=== PATIENT | male | born 1985 | race Caucasian/White ===

== ENCOUNTER 2018-12-27 17:55 | Emergency (ER) | payer OTHER ==
[~2018-12-27] VITALS: Ht 175.3 cm; Wt 108.9 kg
[~2018-12-27 17:55] MED LIST: ACET325T9 PO
[2018-12-27 18:00] VITALS: BP 121/61
--- NOTE | 2018-12-27 18:00 | ED.ADGEN ---
Past History Past Medical History: No Pertinent History Past Surgical History: No Surgical History Alcohol Use: Occasionally Drug Use: None Adult General Chief Complaint Chief Complaint ".. I was helping my brother move.. and I rolled this ankle... about a hour ago... It still hurts to try and walk on it....." HPI HPI Patient is a 33 year old female who presents with above hx and complaints of Lt. ankle pain after inversion type injury. Laxity on anterior drawer. Distal neurovascular intact equal to right foot.. Rates pain as 8 out of 10. No other injuries reported. No upper leg tenderness. Negative foot squeeze. There is obvious edema left lateral malleolus. Patient immunosuppression. No travel or ill contacts. Patient normally healthy. Review of Systems Review of Systems Constitutional: Denies fever or chills [] Eyes: Denies change in visual acuity, redness, or eye pain [] HENT: Denies nasal congestion or sore throat [] Respiratory: Denies cough or shortness of breath [] Cardiovascular: No additional information not addressed in HPI [] GI: Denies abdominal pain, nausea, vomiting, bloody stools or diarrhea [] : Denies dysuria or hematuria [] Musculoskeletal: Complaints left ankle pain Integument: Denies rash or skin lesions [] Neurologic: Denies headache, focal weakness or sensory changes [] Endocrine: Denies polyuria or polydipsia [] All other systems were reviewed and found to be within normal limits, except as documented in this note. Family History Family History Noncontributory Current Medications Current Medications Current Medications Medications (Trade) Dose Ordered Sig/Benton Start Time Stop Time Status Last Admin Dose Admin Hydrocodone Bitartrate/ Ibuprofen (Vicoprofen 7.5-200) 2 tab 1X ONCE 12/27/18 18:30 12/27/18 18:33 DC 12/27/18 18:54 2 TAB Nursing for home meds Allergies Allergies Allergies Coded Allergies Type Severity Reaction Last Updated Verified No Known Drug Allergies 09/20/14 No Physical Exam Physical Exam Constitutional: in moderately acute distress, non-toxic appearance. [] HENT: Normocephalic, atraumatic, bilateral external ears normal, oropharynx moist, no oral exudates, nose normal. [] Eyes: PERRLA, EOMI, conjunctiva normal, no discharge. [] Neck: Normal range of motion, no tenderness, supple, no stridor. [] Cardiovascular:Heart rate regular rhythm, no murmur [] Lungs & Thorax: Bilateral breath sounds clear to auscultation [] Abdomen: Bowel sounds normal, soft, no tenderness, no masses, no pulsatile masses. [] Skin: Warm, dry, no erythema, no rash. [] Back: No tenderness, no CVA tenderness. [] Extremities: No tenderness, no cyanosis, no clubbing, ROM intact, no edema. [] Except findings in left ankle Neurologic: Alert and oriented X 3, normal motor function, normal sensory function, no focal deficits noted. [] Psychologic: Affect normal, judgement normal, mood normal. [] Current Patient Data Vital Signs Vital Signs Date Time Temp Pulse Resp B/P (MAP) Pulse Ox O2 Delivery O2 Flow Rate FiO2 12/27/18 18:00 98.1 90 16 97 Room Air 12/27/18 18:00 121/61 (81) EKG EKG [] Radiology/Procedures Radiology/Procedures I interpretation of x-ray shows[] edema and possible defect in distal fibular. Course & Med Decision Making Course & Med Decision Making Pertinent Labs and Imaging studies reviewed. (See chart for details). Ice, elevation, rest, splint, and take Tylenol and ibuprofen for pain. Follow- up primary care. Crutches. Distal neurovascular intact post application of splint [] Final Impression Final Impression 1. Left ankle sprain[] 2. Possible Fx. Fibular- ( Green stick) Dragon Disclaimer Dragon Disclaimer This electronic medical record was generated, in whole or in part, using a voice recognition dictation system. Dragon Disclaimer This chart was dictated in whole or in part using Voice Recognition software in a busy, high-work load, and often noisy Emergency Department environment. It may contain unintended and wholly unrecognized errors or omissions. Discharge Summary Visit Information Final Diagnosis Problems Medical Problems: (1) Ankle sprain Status: Acute (2) Closed fibular fracture Status: Acute Brief Hospital Course Allergies Allergies Coded Allergies Type Severity Reaction Last Updated Verified No Known Drug Allergies 09/20/14 No Vital Signs Vital Signs Date Time Temp Pulse Resp B/P (MAP) Pulse Ox O2 Delivery O2 Flow Rate FiO2 12/27/18 18:00 98.1 90 16 97 Room Air 12/27/18 18:00 121/61 (81) Brief Hospital Course Mr. Anderson is a 33 old male who presented with Lt ankle sprain- possible greenstick fx fibular distal. Discharge Information Condition at Discharge: Improved, Stable Disposition/Orders: D/C to Home Dischare Medications Current Medications Hydrocodone Bitartrate/ Ibuprofen (Vicoprofen 7.5-200) 2 tab 1X ONCE PO Last administered on 12/27/18at 18:54; Admin Dose 2 TAB; Start 12/27/18 at 18:30; Stop 12/27/18 at 18:33; Status DC Active Scripts Active Reported Tylenol (Acetaminophen) 325 Mg Tablet 1,300 Mg PO PAOLO PHELPS MD Dec 27, 2018 18:00
[2018-12-27] MEDS ORDERED: HYDROcodon/IBUPROFEN 7.5/200MG 1 TAB TABLET PO ONE (18:30)
--- NOTE | 2018-12-28 07:46 | RAD ---
Indication:Twisting injury, left ankle pain and swelling. TECHNIQUE: 3 views of the left ankle COMPARISON:None FINDINGS/ impression: No acute fracture or dislocation. Mild soft tissue swelling seen overlying lateral malleolus. Ankle mortise is intact. Electronically signed by: Fei Duke DO (12/28/2018 7:42 AM) [facility]
== END 2018-12-27 19:00 | disposition home or self-care (01) ==
LOC: ER 17:55
DX: S82.832A Other fracture of upper and lower end of left fibula, initial encounter for closed fracture (principal); S93.402A Sprain of unspecified ligament of left ankle, initial encounter; X50.9XXA Other and unspecified overexertion or strenuous movements or postures, initial encounter; Y93.89 Activity, other specified; Y92.89 Other specified places as the place of occurrence of the external cause; Y99.8 Other external cause status
CPT/HCPCS: 29515; 73610; 99283

== ENCOUNTER 2019-10-23 16:09 | Inpatient (IN) | payer OTHER ==
[~2019-10-23] VITALS: Ht 175.3 cm; Wt 107.0 kg
[2019-10-23] MEDS ORDERED: PROCHLORPERAZINE 10 MG/2 ML VIAL. IV ONE (16:30)
[2019-10-23] MEDS ORDERED: diphenhydrAMINE 50 MG/ML VIAL IVP ONE (16:30)
--- NOTE | 2019-10-23 16:44 | RAD ---
EXAM: Head CT without contrast. HISTORY: Severe headache. TECHNIQUE: Computed tomographic images of the head were obtained without contrast. *One or more of the following individualized dose reduction techniques were utilized for this examination: 1. Automated exposure control. 2. Adjustment of the mA and/or kV according to patient size. 3. Use of iterative reconstruction technique. COMPARISON: None. FINDINGS: There is no acute or subacute extra-axial or intraparenchymal hemorrhage. There is no mass effect or midline shift. There is no hydrocephalus. The malhotra-white matter differentiation pattern is intact. There is left ethmoid, maxillary and frontal sinus mucosal thickening. The mastoid air cells are clear. No suspicious calvarial lesion is seen. IMPRESSION: No acute intracranial findings. Electronically signed by: Rupa Tyler MD (10/23/2019 4:41 PM) [facility]
--- NOTE | 2019-10-23 16:47 | PHYS DOC ---
Past History Past Medical History: No Pertinent History (BRYAN LAGUERRE MD) Past Surgical History: Other Additional Past Surgical Histo: knee surgery (BRYAN LAGUERRE MD) Alcohol Use: Occasionally Drug Use: None (BRYAN LAGUERRE MD) Adult General Chief Complaint Chief Complaint: HEADACHE HPI HPI Patient is a 34 yo male was presented with chief complaint of headache. He's had 3 severe headaches over the last 4 days each of the last 2 nights she had a headache that lasted about an hour or 2 hours it was severe he took Tylenol and over time the headache went away today at 3 PM he had the most severe headache that started suddenly while he was waiting in line for his daughters peanut picker at school. Patient denies a previous history of headaches he denies any tobacco alcohol or drugs he denies medical history does not take any daily medications denies any allergies to medications the pain is in the left frontal area radiates diffusely associated with nausea and photophobia everything seems to make the pain worse. He says it feels like a squeezing. Of note he has had recent sinus pressure and sinus drainage multiple people have been sick and his family over the last month he denies fever over the last few days however. (BRYAN LAGUERRE MD) Review of Systems Review of Systems Constitutional: Denies fever or chills [] Eyes: Denies change in visual acuity, redness HENT: : Denies dysuria or hematuria [] Musculoskeletal: Denies back pain or joint pain [] Integument: Denies rash or skin lesions [] Neurologic: Denies double vision All other systems were reviewed and found to be within normal limits, except as documented in this note. (BRYAN LAGUERRE MD) Current Medications Current Medications Current Medications Medications (Trade) Dose Ordered Sig/Benton Start Time Stop Time Status Last Admin Dose Admin Diphenhydramine HCl (Benadryl) 25 mg 1X ONCE 10/23/19 16:30 10/23/19 16:32 DC Fentanyl Citrate (Fentanyl 2ml Vial) 50 mcg 1X ONCE 10/23/19 16:30 10/23/19 16:32 DC Prochlorperazine Edisylate (Compazine) 10 mg 1X ONCE 10/23/19 16:30 10/23/19 16:32 DC (BRYAN LAGUERRE MD) Allergies Allergies Allergies Coded Allergies Type Severity Reaction Last Updated Verified No Known Drug Allergies 09/20/14 No (BRYAN LAGUERRE MD) Physical Exam Physical Exam Constitutional: Well developed, well nourished, patient appears in moderate distress she is grabbing his head HENT: Normocephalic, atraumatic, bilateral external ears normal, oropharynx moist, no oral exudates, nose normal. [] Eyes: PERRLA, EOMI, conjunctiva normal, no discharge. [] Left eye is watering somewhat Neck: Normal range of motion, no tenderness, supple, no stridor. [] Cardiovascular:Heart rate regular rhythm, no murmur [] Lungs & Thorax: Bilateral breath sounds clear to auscultation [] Abdomen: Bowel sounds normal, soft, no tenderness, no masses, no pulsatile masses. [] Skin: Warm, dry, no erythema, no rash. [] Back: No tenderness, no CVA tenderness. [] Extremities: No tenderness, no cyanosis, no clubbing, ROM intact, no edema. [] Neurologic: Alert and oriented X 3, normal motor function, normal sensory function, no focal deficits noted. []Extraocular movements are intact there is no nystagmus Psychologic: Affect normal, judgement normal, mood normal. [] (BRYAN LAGUERRE MD) Current Patient Data Vital Signs Vital Signs Date Time Temp Pulse Resp B/P (MAP) Pulse Ox O2 Delivery O2 Flow Rate FiO2 10/23/19 16:19 97.9 91 16 97 Room Air (BRYAN LAGUERRE MD) EKG EKG [] (BRYAN LAGUERRE MD) Radiology/Procedures Radiology/Procedures [] Impressions: IMPRESSION: No acute intracranial findings. Electronically signed by: Rupa Jordan MD (10/23/2019 4:41 PM) [facility] DICTATED AND SIGNED BY: RUPA JORDAN MD DATE: 10/23/19 9112 CC: BRYAN LAGUERRE MD; CONI WEINER ~ (BRYAN LAGUERRE MD) Radiology/Procedures [address] [address] IMAGING REPORT Signed PATIENT: BRAD HERCULES ACCOUNT: [id number] : 1985 LOCATION: ER AGE: 34 SEX: M EXAM STATUS: REG ER ORD. PHYSICIAN: BRYAN LAGUERRE MD REASON: severe h/a r/o sah. PROCEDURE: CT HEAD WO CONTRAST EXAM: Head CT without contrast. HISTORY: Severe headache. TECHNIQUE: Computed tomographic images of the head were obtained without contrast. *One or more of the following individualized dose reduction techniques were utilized for this examination: 1. Automated exposure control. 2. Adjustment of the mA and/or kV according to patient size. 3. Use of iterative reconstruction technique. COMPARISON: None. FINDINGS: There is no acute or subacute extra-axial or intraparenchymal hemorrhage. There is no mass effect or midline shift. There is no hydrocephalus. The malhotra-white matter differentiation pattern is intact. There is left ethmoid, maxillary and frontal sinus mucosal thickening. The mastoid air cells are clear. No suspicious calvarial lesion is seen. IMPRESSION: No acute intracranial findings. Electronically signed by: Rupa Jordan MD (10/23/2019 4:41 PM) [place] [id number] DICTATED AND SIGNED BY: RUPA JORDAN MD DATE: 10/23/19 164 CC: BRYAN LAGUERRE MD; CONI WEINER ~ (PAOLO PHELPS MD) Course & Med Decision Making Course & Med Decision Making Pertinent Labs and Imaging studies reviewed. (See chart for details) []Lumbar puncture note informed consent was obtained patient signed the consent form area was prepped and draped usual sterile fashion lidocaine 3 mL subcutaneous was used for anesthesia third lumbar space was entered patient had some transient radiculopathy in the left hip area 2 attempts were made left lateral decubitus unsuccessful I placed the patient in the upright position and then did obtain clear CSF in the second space. Patient did have some transient vasovagal episode during the procedure but recovered after fentanyl and Zofran as well as a period of rest. In summary this is a 34-year-old male presenting with severe headache does have some watering of the eyes and severe unilateral headache became in a series of events over the last 3 days suggestive of cluster headache but never has had headache before I think warrants a CT and LP to rule out subarachnoid hemorrhage. CT scan negative care to be signed over to Dr. Irvin pending the results of the CSF (BRYAN LAGUERRE MD) Course & Med Decision Making See Dr. Laguerre chart for details. Impression: 1. Headche 2. Sinusitis 3. Meningitis 4. Elevated ALT [address] Lindsey with Neurology consult. Will cover with vancomycin, Rocephin and acyclovir. Some question on Spinal results- O ? WBC but appear elevation and dif. . shows WBC and Lymphocytes. (PAOLO PHELPS MD) Dragon Disclaimer Dragon Disclaimer This electronic medical record was generated, in whole or in part, using a voice recognition dictation system. (BRYAN LAGUERRE MD) Departure Departure: Disposition: 01 HOME/RESIDENCE PRIOR TO ADM Condition: STABLE Referrals: CONI WEINER (PCP) Sp Disclaimer This chart was dictated in whole or in part using Voice Recognition software in a busy, high-work load, and often noisy Emergency Department environment. It may contain unintended and wholly unrecognized errors or omissions. (PAOLO PHELPS MD) BRYAN LAGUERRE MD Oct 23, 2019 16:47 PAOLO PHELPS MD Oct 23, 2019 18:53
[2019-10-23 17:05] LABS: BASO # 0.1 x10^3/uL (0.0-0.2); BASO % 1 % (0-3); EOS # 0.2 x10^3/uL (0.0-0.7); EOS % 2 % (0-3); HEMATOCRIT 46.7 % (39.0-53.0); HEMOGLOBIN 15.4 g/dL (13.0-17.5); LYMPH # 2.2 x10^3/uL (1.0-4.8); LYMPH % 27 % (24-48); MEAN CORPUSCULAR HEMOGLOBIN 29 pg (25-35); MEAN CORPUSCULAR HGB CONC 33 g/dL (31-37); MEAN CORPUSCULAR VOLUME 88 fL (79-100); MONO # 0.7 x10^3/uL (0.0-1.1); MONO % 8 % (0-9); NEUT % 62 % (31-73); PLATELET COUNT 216 x10^3/uL (140-400); RED BLOOD COUNT 5.29 x10^6/uL (4.30-5.70); RED CELL DISTRIBUTION WIDTH 14.2 % (11.5-14.5); WHITE BLOOD COUNT 8.1 x10^3/uL (4.0-11.0)
[2019-10-23 17:20] LABS: ALBUMIN 4.1 g/dL (3.4-5.0); CALCIUM 8.9 mg/dL (8.5-10.1); GFR 84.5; POTASSIUM 4.2 mmol/L (3.5-5.1); TOTAL BILIRUBIN 0.4 mg/dL (0.2-1.0); TOTAL PROTEIN 8.1 g/dL (6.4-8.2)
[2019-10-23] MEDS ORDERED: ONDANSETRON PF 4 MG/2 ML VIAL. IVP ONE (17:45)
[2019-10-23] MEDS ORDERED: KETAMINE HCL 500 MG/10 ML VIAL. IV ONE (18:30)
[2019-10-23 18:41] LABS: CSF PROTEIN 40.7 mg/dL (15.0-45.0)
[2019-10-23 19:09] LABS: CSF CLARITY CLEAR; CSF COLOR COLORLESS; CSF RBC COUNT 7; CSF WBC COUNT 0
[2019-10-23] MEDS ORDERED: DEXAMETHASONE SOD PHOS 4 MG/ML VIAL IVP ONE (20:00)
[2019-10-23] MEDS ORDERED: VANCOMYCIN 2 GM in IV NORMAL SALINE 500ML 500 ML IV ONE (20:00)
[2019-10-23] MEDS ORDERED: VANCOMYCIN 1 GM in IV NORMAL SALINE 250ML 250 ML IV ONE (20:00)
[2019-10-23] MEDS ORDERED: NORMAL SALINE IV ONE (20:30)
[2019-10-23] MEDS ORDERED: IV NORMAL SALINE 100ML 100 ML ONE (20:33)
[2019-10-23 20:35] LABS: AMPHETAMINE/METHAMPHETAMINE NEG (NEG); BARBITURATES NEG (NEG); BENZODIAZEPINES NEG (NEG); CANNABINOIDS NEG (NEG); COCAINE NEG (NEG); METHADONE NEG (NEG); OPIATES NEG (NEG); PHENCYCLIDINE NEG (NEG)
[2019-10-23] MEDS ORDERED: IBUPROFEN 600 MG TABLET. PO ONE (20:45)
[2019-10-23] MEDS ORDERED: VANCOMYCIN PER PHARMACY MC PRN (21:30)
[2019-10-23] MEDS ORDERED: ONDANSETRON PF 4 MG/2 ML VIAL. IV PRN (21:30)
[2019-10-23] MEDS ORDERED: ACETAMINOPHEN 325 MG TABLET PO PRN (21:30)
[2019-10-23] MEDS: DEXTROSE 5% IV SCH (22:00)
[2019-10-23] MEDS: ACYCLOVIR SODIUM IV SCH (22:00)
[2019-10-23 23:01] VITALS: BP 113/65
--- NOTE | 2019-10-23 23:33 | NUR ---
Patient admitted to room 103 from the ER, diagnosed with a headache, possible meningitis. Patient states that his head has hurt for a week and has had sinus problems. Patient stated that the headache was really bad. Patient states that his pain is at a 2 currently. Went over plan of care with patient. Seizure precautions implemented and isolation precautions added. Will continue to monitor.
[2019-10-24] MEDS ORDERED: VANCOMYCIN 1.75 GM in IV NORMAL SALINE 500ML 500 ML IV SCH (04:00)
[2019-10-24 05:00] VITALS: BP 126/64
[2019-10-24] MEDS: IPRATRPIUM/ALBUTEROL 0.5/2.5MG 3 ML NEBU. NEB SCH ×2 (05:27→12:52)
[2019-10-24] MEDS: DEXTROSE 5% IV SCH (05:57)
[2019-10-24] MEDS: ACYCLOVIR SODIUM IV SCH (05:57)
[2019-10-24 06:46] LABS: BASO % 0 % (0-3); EOS % 0 % (0-3); HEMATOCRIT 43.7 % (39.0-53.0); HEMOGLOBIN 14.6 g/dL (13.0-17.5); LYMPH # 1.3 x10^3/uL (1.0-4.8); LYMPH % 13 % (24-48); MEAN CORPUSCULAR HEMOGLOBIN 30 pg (25-35); MEAN CORPUSCULAR HGB CONC 33 g/dL (31-37); MEAN CORPUSCULAR VOLUME 88 fL (79-100); MONO # 0.3 x10^3/uL (0.0-1.1); MONO % 3 % (0-9); NEUT # 8.5 x10^3uL (1.8-7.7); NEUT % 84 % (31-73); PLATELET COUNT 190 x10^3/uL (140-400); RED BLOOD COUNT 4.95 x10^6/uL (4.30-5.70); RED CELL DISTRIBUTION WIDTH 13.8 % (11.5-14.5); WHITE BLOOD COUNT 10.1 x10^3/uL (4.0-11.0)
[2019-10-24 06:48] LABS: CALCIUM 8.4 mg/dL (8.5-10.1); GFR 84.5; POTASSIUM 4.2 mmol/L (3.5-5.1)
[2019-10-24 07:38] LABS: % BANDS 1 % (0-9); % LYMPHS 13 % (24-48); % MONOS 3 % (0-10); % SEGS 83 % (35-66)
[2019-10-24 07:39] LABS: PLT ESTIMATE ADEQUATE (ADEQUATE)
[2019-10-24] MEDS ORDERED: LACTOBACILLUS RHAMNOSUS GG 1 CAPSULE. PO SCH (09:00)
[2019-10-24 10:28] VITALS: BP 109/72
--- NOTE | 2019-10-24 13:50 | HP ---
ADMIT DATE: 10/24/2019 HISTORY OF PRESENT ILLNESS: The patient is a 34-year-old male patient who came to the Emergency Room with complaint of headache, had had severe headaches for the last 4 days. The last 2 nights, he had headache that lasted about an hour or two hours, was severe. He took Tylenol and over time the headache went away. As of yesterday, around 3:00 p.m., he had had more severe headache that started suddenly while he was waiting in line for his daughter's pickup at school. He denied any previous history of headaches. Denied any tobacco or alcohol or drug use. Denied any medical history. He does not take any daily medication. Denied any allergies to medication. The pain is in the left frontal area, radiating diffusely, associated with nausea and photophobia. Everything seems to make the pain worse. He states it feels squeezing. Of note, he has had recent sinus pressure and sinus drainage, multiple people have been sick in his family over the last month. He denies any fever over the last 3 days. He was extensively evaluated in the Emergency Room. In particular, he had had CT scan of the head, which showed that there is no acute or subacute extra-axial or intraparenchymal hemorrhage. There is no mass effect or midline shift. There is no hydrocephalus. The malhotra white matter differentiation pattern is intact. There is left ethmoid, maxillary and frontal sinus mucosal thickening. The mastoid air cells are clear. No suspicious calvarial lesion. He apparently was started on IV antibiotic in the form of vancomycin, ceftriaxone as well as dexamethasone and ketamine and has had lumbar puncture, which was very interesting, in that the CSF was colorless and clear. There are no wbc's. The CSF glucose was 59, CSF total protein was 40.7. What is interesting is that although there are no wbc's, there is differential which shows that mononuclear cells were 12%, polynuclear was 21% and other cells were 67%. The patient has no fever. His white cell count was normal and clinically does not have any neck rigidity or stiffness. PAST MEDICAL HISTORY: Unremarkable. PAST SURGICAL HISTORY: Significant for right anterior cruciate ligament repair. ALLERGIES: He has no known drug allergies. MEDICATIONS: He is on acetaminophen, but no other medication. FAMILY HISTORY: He has two brothers, one older and one younger and both healthy. His father was at the age of 63 because of throat cancer. Mother is alive at age of 69 and has type 2 diabetes and atrial fibrillation. SOCIAL HISTORY: He is , has one son. He does not smoke, drink alcohol or use any drugs. He is a student, studying for secondary education. REVIEW OF SYSTEMS: The patient denied any blurring of vision, cataract, glaucoma or macular degeneration. Denied any earache, tinnitus or sensorineural deafness. Denied any nosebleeds, stuffy nose or postnasal drip. Denied any sore throat, sore tongue, toothache, hoarseness of voice or difficulty swallowing. Denied any nausea, vomiting, diarrhea or constipation. Denied any hematemesis, melena or hematochezia. Denied any dysuria, frequency or hematuria. Denied any chest pain, shortness of breath, orthopnea, paroxysmal nocturnal dyspnea. Denied any cough, phlegm or hemoptysis. Did complain of some dizziness and lightheadedness. PHYSICAL EXAMINATION: GENERAL: On examining him, he looked well and was clearly in no apparent respiratory distress. No pallor, jaundice, cyanosis or thyromegaly. No jugular venous distention. No lower limb edema. VITAL SIGNS: His heart rate was 60, blood pressure was 108/58, temperature was 97.9, respiratory rate was 16 and oxygen saturation was 96% on room air. HEAD, EYES, EARS, NOSE AND THROAT: Showed normocephalic, atraumatic. NECK: Supple. There is definitely no neck rigidity. Kernig's sign was negative. HEART: Showed normal first and second heart sounds. No gallop or murmur. CHEST: Clear to auscultation. No crepitation or rhonchi. ABDOMEN: Distended, soft, nontender. No guarding or rigidity. No organomegaly. All hernial orifices intact. Bowel sounds normal. NEUROLOGIC: He was awake, alert, responding appropriately. All cranial nerves intact. EXTREMITIES: He moves extremities without difficulty. Ambulates without assistance or assistive devices. LABORATORY DATA: Showed a white cell count of 8100, hemoglobin 15, hematocrit 46, MCV 88 and platelet count 216,000. His prothrombin time was 10.1, INR of 1. Chemistry showed serum sodium 137, potassium 4.2, chloride 103, bicarbonate 23, anion gap of 11, BUN 15, creatinine 1, estimated GFR was 85 mL per minute. His glucose was 96, calcium was 8.9. Total bilirubin, AST, ALT, alkaline phosphatase were normal. Total protein was 8.1, albumin was 4.1. His toxic screen was negative. The CT scan showed that there was no acute or subacute extra-axial or intraparenchymal hemorrhage. There is no mass effect or midline shift. There is no hydrocephalus. The malhotra white matter differentiation pattern is intact. There is left ethmoid, maxillary and frontal sinus mucosal thickening. The mastoid air cells are clear. No suspicious calvarial lesion is seen. The patient has had lumbar puncture done, which showed the CSF protein and glucose are normal. There are no wbc's on one side and there is a differential diagnosis that does not make sense. ASSESSMENT AND PLAN: Clinically, the patient does not seem to have any meningitis, viral or otherwise. We have consulted Dr. Luis and I spoke with the lab to settle the issue of this differential that does not really make any sense. SHELBY RODGERS MD DR: LAURENCE/colt JOB#: [id number] / [id number]
--- NOTE | 2019-10-24 14:04 | NUR ---
PATIENT DC HOME WITH SELF CARE. PATIENTS IV D/C'D. PATIENT'S PRESCRIPTION FOR AUGMENTIN CALLED IN TO [facility] BY THIS NURSE. PATIENT GIVEN D/C INSTRUCTIONS AND FOLLOW UP PLANS. PATIENT TAKES ALL BELONGINGS AT TIME OF D/C. PATIENT AMBULATED OFF UNIT ACCOMPANIED BY SPOUSE.
--- NOTE | 2019-10-24 16:31 | CONS ---
DATE OF CONSULTATION: NEUROLOGY CONSULTATION REFERRING PHYSICIAN: Dr. Lindsey. REASON FOR CONSULTATION: Severe headaches. HISTORY OF PRESENT ILLNESS: This is a 34-year-old right-handed male who was admitted through Emergency Room after he presented with 4-day history of progressive frontal headaches. According to the patient, the first day the headache was mild, frontal and lasted half hour. The headache responded to Tylenol. He slept and next day, he started having more headache, lasted 2 hours and it was responded also to Tylenol. The headache has been like this until yesterday when the headache becomes very severe, confined to the frontal area associated with nausea and photophobia. He denies vomiting, phonophobia, visual disturbances, chest pain, shortness of breath or palpitation. The patient denies any history of migraine or previous headaches, any recent injuries or fall. However, he has been suffering from sinus problem in the last few days and stated everybody at home was sick. He denies any other neurological complaints. According to the patient, his headache today is much better and it is rated at 2/10 on pain scale. He was preventatively started on vancomycin and ceftriaxone intravenously along with acyclovir. Initial nonenhanced head CT scan revealed no evidence of acute intracranial process or any other abnormalities and spinal fluid was unremarkable. The patient denies neck injuries, neck pain or stiffness. PAST MEDICAL HISTORY: Unremarkable. PAST SURGICAL HISTORY: Knee surgery. SOCIAL HISTORY: The patient is . He has 1 child. He denies alcohol drinking or illicit drug use. He is unemployed. CURRENT HOME MEDICATIONS: Tylenol. ALLERGIES: No known drug allergies. REVIEW OF SYSTEMS: A 10-point review of system was performed as mentioned above in history of present illness. PHYSICAL EXAMINATION: GENERAL: Well-developed, well-nourished male, not in acute distress. He weighs 107 kilos. VITAL SIGNS: Blood pressure 109/72, respiratory rate 20, pulse is 99, temperature is 98.3, oxygen saturation 95% on room air. HEENT: Normocephalic, atraumatic, otherwise unremarkable. NECK: Supple. Negative for carotid bruit, lymphadenopathy or thyromegaly. LUNGS: Clear to A and P. CARDIOVASCULAR: Regular rate and rhythm, normal S1, S2. ABDOMEN: Soft. Bowel sounds positive. EXTREMITIES: Negative for cyanosis, clubbing or edema. NEUROLOGICAL EXAMINATION: Mental Status: The patient is alert and oriented x 3. Speech is fluent. There is no language dysfunction. Memory, judgment, and abstracting thinking are normal. The patient denies hallucination or delusion. CRANIAL NERVES: Visual mejia are full. The pupils are reactive to light and accommodation. The extraocular movements are intact. There is no nystagmus. There is no facial motor or sensory deficit. Hearing is intact bilaterally. The palate is elevated symmetrically. Sternocleidomastoid muscles are powerful bilaterally. The patient shrugs his shoulders symmetrically, protrudes his tongue in the midline without fasciculation or atrophy. MOTOR EXAMINATION: No focal muscle bulk was seen. The tone is normal. The strength is 5/5 throughout. Sensory examination revealed normal pinprick, light touch, vibratory and position senses. Deep tendon reflexes were symmetric and active without pathologic responses. Gait and coordination are normal. LABORATORY DATA: CBC revealed white blood cells of 10.1 thousand, hemoglobin 14.6, hematocrit 43.7, platelet count 190,000. Chemistry revealed sodium of 139, potassium 4.2, chloride 107, CO2 of 22, BUN 7, creatinine 1, glucose 146 and calcium 8.4. Coagulation is normal. Urine drug screen is negative. Spinal fluid revealed white blood cells of 0 and red blood cell is 7, normal protein and glucose. IMPRESSION: Severe frontal headaches -- improved. No evidence of meningitis, possible viral infection. RECOMMENDATIONS: Continue with current management initiated by Dr. Lindsey. The patient does not take antibiotics. Otherwise, neuro examination is unremarkable. M Michel ADAMS MD DR: STEFANY/colt JOB#: [id number] / [id number]
== END 2019-10-24 14:04 | disposition home or self-care (01) | DRG 153 ==
LOC: ER 16:09 → 1 SOUTH 20:00
PROVIDERS: ADMIT Internal Medicine; ATTEND Internal Medicine
DX: J01.10 Acute frontal sinusitis, unspecified (principal); B97.89 Other viral agents as the cause of diseases classified elsewhere; J32.9 Chronic sinusitis, unspecified; Z83.3 Family history of diabetes mellitus; Z80.8 Family history of malignant neoplasm of other organs or systems
CPT/HCPCS: 36415; 62270; 70450; 80048; 80053; 80307; 82945; 83605; 84157; 85007; 85025; 85610; 89051; 94640; 96361; 96365; 96366; 96368; 96375; J0133; J0696; J0780; J1100; J1200; J2405; J3010; J3370; J3490; J7040; J7620; 99285-25; J7030

== ENCOUNTER → 2020-01-21 | Outpatient (CLI) | payer OTHER ==
[2020-01-21 15:05] LABS: BASO # 0.1 x10^3/uL (0.0-0.2); BASO % 1 % (0-3); EOS # 0.2 x10^3/uL (0.0-0.7); EOS % 3 % (0-3); HEMATOCRIT 47.6 % (39.0-53.0); HEMOGLOBIN 15.8 g/dL (13.0-17.5); LYMPH # 1.7 x10^3/uL (1.0-4.8); LYMPH % 27 % (24-48); MEAN CORPUSCULAR HEMOGLOBIN 30 pg (25-35); MEAN CORPUSCULAR HGB CONC 33 g/dL (31-37); MEAN CORPUSCULAR VOLUME 89 fL (79-100); MONO # 0.5 x10^3/uL (0.0-1.1); MONO % 8 % (0-9); NEUT # 3.9 x10^3uL (1.8-7.7); NEUT % 61 % (31-73); PLATELET COUNT 184 x10^3/uL (140-400); RED BLOOD COUNT 5.37 x10^6/uL (4.30-5.70); WHITE BLOOD COUNT 6.3 x10^3/uL (4.0-11.0)
[2020-01-21 15:11] LABS: ALBUMIN 3.9 g/dL (3.4-5.0); C REACTIVE PROTEIN 1.2 mg/L (0-3.3); CALCIUM 9.1 mg/dL (8.5-10.1); CREATININE 1.3 mg/dL (0.7-1.3); GFR 62.5; TOTAL BILIRUBIN 0.4 mg/dL (0.2-1.0); TOTAL PROTEIN 7.8 g/dL (6.4-8.2)
[2020-01-21 15:58] LABS: BACTERIA,URINE 0 /HPF (0-FEW); BILIRUBIN,URINE NEG (NEG); CLARITY,URINE CLEAR; COLOR,URINE YELLOW; GLUCOSE,URINE NEG (NEG); NITRITE,URINE NEG (NEG); RBC,URINE 0 /HPF (0-2); SQUAMOUS EPITHELIAL CELL,UR OCC /LPF; UROBILINOGEN,URINE 0.2 mg/dL (0.2 mg/dL); WBC,URINE OCC /HPF (0-4)
== END | disposition home or self-care (01) ==
LOC: LAB 14:27
PROVIDERS: ATTEND Registered Nurse
DX: R10.13 Epigastric pain (principal); R10.11 Right upper quadrant pain; R19.7 Diarrhea, unspecified
CPT/HCPCS: 36415; 80053; 81001; 82150; 83690; 85025; 86140

== ENCOUNTER → 2020-01-22 | Outpatient (CLI) | payer OTHER ==
--- NOTE | 2020-01-22 10:12 | RAD ---
ABDOMEN LTD History: Right upper quadrant pain Comparison: None. Findings: Multiple sonographic images of the abdomen are submitted. There is no abnormality of the visualized pancreas. There is increased echogenicity of the hepatic parenchyma likely due to steatosis, likely focal fatty sparing near the gallbladder fossa. Right lobe of the liver measured about 16.3 cm longitudinal. Right kidney measured 11.2 x 5.5 x 5 cm, no hydronephrosis. Gallbladder is present, gallstone near the neck estimated about 1.7 cm also with adjacent echogenicity which may be due to sludge. Gallbladder wall is not significantly thickened about 0.2 cm. Common bile duct measures about 0.5 cm, within normal limits. Inferior vena cava is not well-visualized due to bowel gas. Impression: 1. There is an approximate 1.7 cm gallstone near the gallbladder neck with adjacent sludge. 2. There is hepatic steatosis, focal fatty sparing near the gallbladder fossa. Electronically signed by: Bal Lee MD (01/22/2020 10:09 AM) [id number]
== END ==
LOC: US 08:45
PROVIDERS: ATTEND Registered Nurse
DX: K80.20 Calculus of gallbladder without cholecystitis without obstruction (principal); K76.0 Fatty (change of) liver, not elsewhere classified
CPT/HCPCS: 76705

== ENCOUNTER 2020-03-27 04:58 | Emergency (ER) | payer OTHER ==
[~2020-03-27] VITALS: Ht 175.3 cm; Wt 108.3 kg
--- NOTE | 2020-03-27 05:03 | PHYS DOC ---
Past History Past Medical History: No Pertinent History (ADOLFO DE LA TORRE DO) Past Surgical History: Other Additional Past Surgical Histo: knee surgery (ADOLFO DE LA TORRE DO) Smoking: Non-smoker Alcohol Use: Occasionally Drug Use: None (ADOLFO DE LA TORRE DO) General Adult EDM: Chief Complaint: Abdominal pain HPI: HPI: 34-year-old male presents with report of sudden abdominal pain which woke patient up this morning at 0340. Patient does report some associated nausea and diarrhea. Denies vomiting. Denies fever or chills. Denies chest pain. Denies shortness of breath. Patient does report history of having similar episode on Saturday which self resolved. Patient reports last ate at approximately 1800 last night which consisted of hamburger, hot links, and chicken. [facility] review notes patient was seen in January for out patient ultrasound which noted cholelithiasis. Patient reports he was not instructed on results by his PCP nor has he followed with a general surgeon regarding. Denies trauma. Denies known sick contacts. (ADOLFO DE LA TORRE DO) Review of Systems: Review of Systems: Constitutional: Denies fever or chills Eyes: Denies redness or eye pain HENT: Denies nasal congestion or sore throat Respiratory: Denies cough or shortness of breath Cardiovascular: Denies chest pain or palpitations GI: Reports right upper quadrant and epigastric abdominal pain, nausea, and diarrhea; denies vomiting : Denies dysuria or hematuria Musculoskeletal: Denies back pain or joint pain Integument: Denies rash or skin lesions Neurologic: Denies headache, focal weakness or sensory changes Complete systems were reviewed and found to be within normal limits, except as documented in this note. (ADOLFO DE LA TORRE DO) Heart Score: HEART Score for Chest Pain: HEART Score for Chest Pain Response (Comments) Value History Slighlty/Non-Suspicious 0 ECG Normal 0 Age < 45 0 Risk Factors No Risk Factors 0 Troponin < Normal Limit 0 Total 0 Risk Factors: Risk Factors: DM, Current or recent (<one month) smoker, HTN, HLP, family history of CAD, obesity. Risk Scores: Score 0 - 3: 2.5% MACE over next 6 weeks - Discharge Home Score 4 - 6: 20.3% MACE over next 6 weeks - Admit for Clinical Observation Score 7 - 10: 72.7% MACE over next 6 weeks - Early Invasive Strategies (ADOLFO DE LA TORRE DO) Allergies: Allergies: Allergies Coded Allergies Type Severity Reaction Last Updated Verified No Known Drug Allergies 09/20/14 No (ADOLFO DE LA TORRE DO) Physical Exam: PE: Constitutional: Well developed, well nourished, uncomfortable, non-toxic appearance HENT: Normocephalic, atraumatic Eyes: Conjunctiva normal, no discharge Neck: Normal range of motion, no tenderness, supple Cardiovascular: Heart rate normal, regular rhythm Lungs & Thorax: Bilateral breath sounds clear to auscultation, no wheezing Abdomen: Soft, right upper quadrant/epigastric tenderness, distention, no rebound tenderness Skin: Warm, dry, no erythema, no rash Back: No tenderness, no CVA tenderness Extremities: No tenderness, ROM intact, no edema Neurologic: Alert and oriented X 3, normal motor function, normal sensory function, no focal deficits noted Psychologic: Affect normal, judgment normal (ADOLFO DE LA TORRE DO) EKG: EKG: @0512 NSR at 71bpm, NO ST elevation, QRS 92ms, QT/QTc 390/429ms (ADOLFO DE LA TORRE DO) Radiology/Procedures: Radiology/Procedures: [] (ADOLFO DE LA TORRE DO) Radiology/Procedures: [place] [address] IMAGING REPORT Signed PATIENT: BRAD HERCULES ACCOUNT: [id number] : 1985 LOCATION: ER AGE: 34 SEX: M EXAM STATUS: REG ER ORD. PHYSICIAN: ADOLFO DE LA TORRE DO REASON: RUQ pain eval for cholecystitis, hx of cholelithiasis PROCEDURE: ABDOMEN LTD Clinical History: Right upper quadrant pain Technique: Sonographic examination of the right upper quadrant of the abdomen was performed and multiple static images were obtained. Comparison: none Findings: The majority of the liver is visualized and appears homogeneous. There is increased echogenicity attenuation of sound which further limits ultrasound sensitivity for possible solid liver lesion. Liver measures 18 cm in length. The common bile duct is mildly dilated and measures 6.5 mm in diameter. The gallbladder is mildly distended and there is a 6 stones and sludge. The gallbladder wall appears borderline thickened there is a trace adjacent fluid. There is tenderness over the gallbladder. The pancreas is not well visualized due to overlying bowel gas. The right kidney appears normal and measures 11.5 cm in length. Impression: 1. Cholelithiasis and probable mild acute cholecystitis. 2. Mild hepatomegaly. 3. Fatty infiltration of the liver. 4. Mildly dilated common bile duct. No stones seen in the common bile duct. Electronically signed by: Malcom Maki III, MD (03/27/2020 6:37 AM) [id number] DICTATED AND SIGNED BY: MALCOM MAKI III, MD DATE: 03/27/20 0637 CC: CONI WEINER; SAMMY GARCIA DO; ADOLFO DE LA TORRE DO ~ (SAMMY GARCIA DO) Course & Med Decision Making: Course & Med Decision Making Patient presents with report of abdominal pain. History of prior ultrasound which noted cholelithiasis. Symptomatic treatment provided. IV fluid hydration given. EKG stable. Labs obtained pending at this time. US pending at this time. Sign out given to Dr. Garcia for further evaluation and final disposition. Discussed current findings and plan with patient and family, who acknowledge understanding and agreement. (ADOLFO DE LA TORRE DO) Course & Med Decision Making Patient is a 34-year-old male who was evaluated in the ER due to right upper quadrant abdominal pain, ultrasound his abdomen showed gallstones with mild acute cholecystitis with dilated common bile duct. Patient will be transferred to for general surgery and GI evaluation. Patient is amenable of care. Patient is accepted by Dr. Lindsey hospitalist at [facility]. (SAMMY GARCIA DO) Sp Disclaimer: Sp Disclaimer: This electronic medical record was generated, in whole or in part, using a voice recognition dictation system. (ADOLFO DE LA TORRE DO) Departure Departure: Impression: Primary Impression: Abdominal pain Qualified Codes: R10.13 - Epigastric pain Additional Impression: Acute cholecystitis Disposition: 02 XFER SHT-TRM HOSP (transferred to , ac cepted by Dr. Lindsey) Condition: STABLE Referrals: CONI WEINER (PCP) ADOLFO DE LA TORRE DO March 27, 2020 05:03 SAMMY GARCIA DO March 27, 2020 06:57
--- NOTE | 2020-03-27 05:19 | EKG ---
[address] [address] Test Date: 2020-03-27 Test Time: 05:12:41 Pat Name: BRAD HERCULES Department: Room: Gender: M [employer] Apprentice: : 1985 Requested By: ADOLFO DE LA TORRE Order Number: [id number] Reading MD: Buddy Orr Measurements Intervals [place] Rate: 71 P: 28 [place]: 168 QRS: 64 QRSD: 92 T: 34 QT: 390 QTc: 429 Interpretive Statements SINUS RHYTHM NORMAL ECG RI6.02 No previous ECG available for comparison Electronically Signed On 03-28-2020 7:52:58 CDT by Buddy Orr
[2020-03-27] MEDS ORDERED: KETOROLAC 15 MG/ML VIAL. IVP ONE (05:30)
[2020-03-27] MEDS ORDERED: IV NORMAL SALINE 1,000ML 1,000 ML IV ONE (05:30)
[2020-03-27] MEDS ORDERED: ONDANSETRON PF 4 MG/2 ML VIAL. IVP ONE (05:30)
[2020-03-27] MEDS ORDERED: FAMOTIDINE 20 MG/2 ML VIAL IVP ONE (05:30)
[2020-03-27 05:38] LABS: BASO # 0.1 x10^3/uL (0.0-0.2); BASO % 1 % (0-3); EOS # 0.4 x10^3/uL (0.0-0.7); EOS % 4 % (0-3); HEMATOCRIT 44.8 % (39.0-53.0); HEMOGLOBIN 14.8 g/dL (13.0-17.5); LYMPH # 3.2 x10^3/uL (1.0-4.8); LYMPH % 34 % (24-48); MEAN CORPUSCULAR HEMOGLOBIN 29 pg (25-35); MEAN CORPUSCULAR HGB CONC 33 g/dL (31-37); MEAN CORPUSCULAR VOLUME 89 fL (79-100); MONO # 0.9 x10^3/uL (0.0-1.1); MONO % 9 % (0-9); NEUT # 4.8 x10^3uL (1.8-7.7); NEUT % 52 % (31-73); PLATELET COUNT 219 x10^3/uL (140-400); RED BLOOD COUNT 5.03 x10^6/uL (4.30-5.70); RED CELL DISTRIBUTION WIDTH 14.3 % (11.5-14.5); WHITE BLOOD COUNT 9.4 x10^3/uL (4.0-11.0)
[2020-03-27 05:49] LABS: BILIRUBIN,URINE NEG (NEG); CLARITY,URINE CLEAR; COLOR,URINE STRAW; GLUCOSE,URINE NEG (NEG)
[2020-03-27 05:50] LABS: BACTERIA,URINE FEW /HPF (0-FEW); NITRITE,URINE NEG (NEG); RBC,URINE 0 /HPF (0-2); SQUAMOUS EPITHELIAL CELL,UR OCC /LPF; UROBILINOGEN,URINE 0.2 mg/dL (0.2 mg/dL)
[2020-03-27 05:50] LABS: CALCIUM 9.2 mg/dL (8.5-10.1); CREATININE 1.3 mg/dL (0.7-1.3); GFR 62.5; POTASSIUM 3.9 mmol/L (3.5-5.1)
[2020-03-27 06:06] LABS: ALBUMIN/GLOBULIN RATIO 1.2 (1.0-1.7); MAGNESIUM 2.1 mg/dL (1.8-2.4); TOTAL BILIRUBIN 0.5 mg/dL (0.2-1.0); TOTAL PROTEIN 7.3 g/dL (6.4-8.2)
--- NOTE | 2020-03-27 06:40 | RAD ---
Clinical History: Right upper quadrant pain Technique: Sonographic examination of the right upper quadrant of the abdomen was performed and multiple static images were obtained. Comparison: none Findings: The majority of the liver is visualized and appears homogeneous. There is increased echogenicity attenuation of sound which further limits ultrasound sensitivity for possible solid liver lesion. Liver measures 18 cm in length. The common bile duct is mildly dilated and measures 6.5 mm in diameter. The gallbladder is mildly distended and there is a 6 stones and sludge. The gallbladder wall appears borderline thickened there is a trace adjacent fluid. There is tenderness over the gallbladder. The pancreas is not well visualized due to overlying bowel gas. The right kidney appears normal and measures 11.5 cm in length. Impression: 1. Cholelithiasis and probable mild acute cholecystitis. 2. Mild hepatomegaly. 3. Fatty infiltration of the liver. 4. Mildly dilated common bile duct. No stones seen in the common bile duct. Electronically signed by: Bill Bobo III, MD (03/27/2020 6:37 AM) [id number]
[2020-03-27] MEDS ORDERED: PIPERACILLIN/TAZOBACTAM 3.375 GM VIAL IV ONE (06:49)
[2020-03-27] MEDS ORDERED: IV NORMAL SALINE 50ML 50 ML ONE (06:49)
[2020-03-27] MEDS ORDERED: PIPERACILLIN/TAZOBACTAM 3.375 GM in IV NORMAL SALINE 50ML 50 ML IV ONE (07:00)
[2020-03-27 08:08] VITALS: BP 124/68
== END 2020-03-27 08:44 | disposition short-term general hospital (02) ==
LOC: ER 04:58
DX: K80.00 Calculus of gallbladder with acute cholecystitis without obstruction (principal); K83.8 Other specified diseases of biliary tract; R10.13 Epigastric pain
CPT/HCPCS: 36415; 76705; 80053; 81001; 82553; 83605; 83690; 83735; 84484; 85025; 85610; 85730; 93005; 96361; 96365; 96375; 99285; J1885; J2405; J2543; J3010; J3490; J7030

== ENCOUNTER 2020-04-09 00:30 | Emergency (ER) | payer OTHER ==
[~2020-04-09] VITALS: Ht 175.3 cm; Wt 104.0 kg
--- NOTE | 2020-04-09 00:33 | PHYS DOC ---
Past History Past Medical History: No Pertinent History Past Surgical History: Other Additional Past Surgical Histo: right knee Smoking: Non-smoker Alcohol Use: None Drug Use: None General Adult HPI: HPI: "..I was taking a shower.. and slip...fell and hit the back or top my head on the cabinet,,," Patient is a 34 year old male who presents with above hx of laceration star- shaped 2 x 2 by 2 cm posterior scalp. Does have a hematoma and slight. Patient denies any loss of consciousness. Patient has some upper neck tenderness. Patient laceration currently good hemostasis. Patient recently had gallbladder removal at [facility] 2 weeks ago. Patient has been recuperating well. Patient not on any anticoagulants. Patient denies any history of travel outside the [place] area. Patient denies any immunosuppression. Review of Systems: Review of Systems: Constitutional: Denies fever or chills Eyes: Denies change in visual acuity HENT: Denies nasal congestion or sore throat . Complaints of head injury. Respiratory: Denies cough or shortness of breath Cardiovascular: Denies chest pain or edema GI: Denies abdominal pain, nausea, vomiting, bloody stools or diarrhea : Denies dysuria Musculoskeletal: Denies back pain or joint pain Integument: Denies rash Complaints of laceration. Neurologic: Denies headache, focal weakness or sensory changes Endocrine: Denies polyuria or polydipsia Lymphatic: Denies swollen glands Psychiatric: Denies depression or anxiety Heart Score: Risk Factors: Risk Factors: DM, Current or recent (<one month) smoker, HTN, HLP, family history of CAD, obesity. Risk Scores: Score 0 - 3: 2.5% MACE over next 6 weeks - Discharge Home Score 4 - 6: 20.3% MACE over next 6 weeks - Admit for Clinical Observation Score 7 - 10: 72.7% MACE over next 6 weeks - Early Invasive Strategies Family History: Family History: Noncontributory Current Medications: Current Meds: See nursing for home medications Allergies: Allergies: Allergies Coded Allergies Type Severity Reaction Last Updated Verified No Known Drug Allergies 09/20/14 No Physical Exam: PE: Constitutional: Well developed, well nourished, mild distress, non-toxic appearance. [] HENT: Normocephalic, laceration posterior scalp 2 x 2 cm x 2 cm and hematoma,, bilateral external ears normal, oropharynx moist, no oral exudates, nose normal. [] Eyes: PERRLA, EOMI, conjunctiva normal, no discharge. [] Neck: Normal range of motion, some mild upper neck tenderness, supple, no stridor. [] Cardiovascular:Heart rate regular rhythm, no murmur [] Lungs & Thorax: Bilateral breath sounds clear to auscultation [] Abdomen: Bowel sounds normal, soft, no tenderness, no masses, no pulsatile masses. Healing surgical incision sites no inflammation or drainage. Skin: Warm, dry, no erythema, no rash. [] Back: No tenderness, no CVA tenderness. [] Extremities: No tenderness, no cyanosis, no clubbing, ROM intact, no edema. [] Neurologic: Alert and oriented X 3, normal motor function, normal sensory function, no focal deficits noted. [] DTRs +2 patellar brachial. Director Meetings equal. Amatory without problems. Patient has no drift. Psychologic: Affect anxious, judgement normal, mood normal. [] EKG: EKG: [] Radiology/Procedures: Radiology/Procedures: [][place] [address] IMAGING REPORT Signed PATIENT: BRAD HERCULES ACCOUNT: [id number] : 1985 LOCATION: ER AGE: 34 SEX: M EXAM STATUS: REG ER ORD. PHYSICIAN: PAOLO PHELPS MD REASON: Fell in shower, head lac. PROCEDURE: CT HEAD AND CERVICAL SPINE WO CT scan of the head without contrast 04/09/2020 Clinical History: Fall. Head laceration. Technique: Unenhanced, contiguous, 5 mm axial sections were obtained through the head. One or more of the following individualized dose reduction techniques were utilized for this study: 1. Automated exposure control. 2. Adjustment of the mA and/or kV according to patient size. 3. Use of iterative reconstruction technique. Findings: The ventricles and sulci are within normal limits in size and configuration. No acute parenchymal abnormality is seen. No extra-axial fluid collection is noted. No skull fracture is seen. Impression: No acute intracranial abnormality is seen. CT scan of the cervical spine without contrast 04/09/2020 Clinical history: Fall. Neck injury. Technique: Unenhanced, contiguous, 0.625 mm axial sections were obtained through the cervical spine. Axial, coronal and sagittal reconstructed images were obtained. One or more of the following individualized dose reduction techniques were utilized for this study: 1. Automated exposure control. 2. Adjustment of the mA and/or kV according to patient size. 3. Use of iterative reconstruction technique. Findings: Sagittal and coronal reconstructed images demonstrate very mild lateral curvature of the cervical spine, convex to the right. No fracture or subluxation of the cervical vertebrae is seen. Impression: No fracture or subluxation of the cervical vertebra is identified. Electronically signed by: Ky Roque MD (04/09/2020 2:45 AM) [id number] DICTATED AND SIGNED BY: KY ROQUE MD DATE: 04/09/20 0245 CC: PAOLO PHELPS MD; CONI WEINER ~ Course & Med Decision Making: Course & Med Decision Making Pertinent Labs and Imaging studies reviewed. (See chart for details) Laceration repair-area laceration cleaned with Betadine and then irrigated with normal saline. Injected into the laceration with 2% lidocaine and epinephrine. Re -irrigated laceration normal saline. Close laceration with 5 july. Patient keep area clean and dry. Apply Polysporin 4 times a day. Gypsum out in 10 days. Head injury precautions. Patient return if any concerns. [] Impression- 1. Slip and fall 2. Head injury contusion 3. Laceration 2 x 2 x 2 cm Sp Disclaimer: Dragon Disclaimer: This electronic medical record was generated, in whole or in part, using a voice recognition dictation system. Departure Departure: Disposition: 01 HOME/RESIDENCE PRIOR TO ADM Condition: STABLE Referrals: CONI WEINER (PCP) Sp Disclaimer This chart was dictated in whole or in part using Voice Recognition software in a busy, high-work load, and often noisy Emergency Department environment. It ma y contain unintended and wholly unrecognized errors or omissions. PAOLO PHELPS MD April 09, 2020 00:32
[2020-04-09 00:43] VITALS: BP 131/67
[2020-04-09] MEDS ORDERED: LIDOCAINE 2%/EPI 1:100,000 20 ML VIAL. IJ ONE (00:45)
[2020-04-09] MEDS ORDERED: BACITRACIN ZINC TOPICAL OINT PACKET. TP ONE (00:45)
[2020-04-09] MEDS ORDERED: oxyCODONE/APAP 5/325 1 TAB TABLET PO ONE (02:00)
--- NOTE | 2020-04-09 02:48 | RAD ---
CT scan of the head without contrast 04/09/2020 Clinical History: Fall. Head laceration. Technique: Unenhanced, contiguous, 5 mm axial sections were obtained through the head. One or more of the following individualized dose reduction techniques were utilized for this study: 1. Automated exposure control. 2. Adjustment of the mA and/or kV according to patient size. 3. Use of iterative reconstruction technique. Findings: The ventricles and sulci are within normal limits in size and configuration. No acute parenchymal abnormality is seen. No extra-axial fluid collection is noted. No skull fracture is seen. Impression: No acute intracranial abnormality is seen. CT scan of the cervical spine without contrast 04/09/2020 Clinical history: Fall. Neck injury. Technique: Unenhanced, contiguous, 0.625 mm axial sections were obtained through the cervical spine. Axial, coronal and sagittal reconstructed images were obtained. One or more of the following individualized dose reduction techniques were utilized for this study: 1. Automated exposure control. 2. Adjustment of the mA and/or kV according to patient size. 3. Use of iterative reconstruction technique. Findings: Sagittal and coronal reconstructed images demonstrate very mild lateral curvature of the cervical spine, convex to the right. No fracture or subluxation of the cervical vertebrae is seen. Impression: No fracture or subluxation of the cervical vertebra is identified. Electronically signed by: Ky Roque MD (04/09/2020 2:45 AM) [id number]
== END 2020-04-09 02:58 | disposition home or self-care (01) ==
LOC: ER 00:30
DX: S01.01XA Laceration without foreign body of scalp, initial encounter (principal); Z98.890 Other specified postprocedural states; W01.198A Fall on same level from slipping, tripping and stumbling with subsequent striking against other object, initial encounter; Y93.89 Activity, other specified; Y92.89 Other specified places as the place of occurrence of the external cause; Y99.8 Other external cause status
CPT/HCPCS: 12001; 70450; 72125; 99285

== ENCOUNTER 2021-03-28 08:16 | Emergency (ER) | payer OTHER ==
[~2021-03-28] VITALS: Ht 175.3 cm; Wt 104.0 kg
[2021-03-28 08:16] VITALS: BP 115/76
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
[2021-03-28] MEDS ORDERED: NEOMY/BACITR/POLYMYXIN OINT PACKET. TP ONE ×2 (08:43→08:45)
== END 2021-03-28 08:46 | disposition home or self-care (01) ==
LOC: ER 08:16
DX: S00.531A Contusion of lip, initial encounter (principal); W22.8XXA Striking against or struck by other objects, initial encounter; Y93.89 Activity, other specified; Y92.89 Other specified places as the place of occurrence of the external cause; Y99.8 Other external cause status
CPT/HCPCS: 99282